=== PATIENT | male | born 1995 | race Caucasian/White ===

== ENCOUNTER 2019-08-15 17:59 | Emergency (ER) | payer BC ==
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
[2019-08-15] MEDS ORDERED: Acetaminophen 500 MG TAB ONE (19:21)
[2019-08-15] MEDS ORDERED: Ibuprofen 800 MG TAB ONE (19:21)
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
== END 2019-08-15 19:41 | disposition home or self-care (01) ==
LOC: ERS 17:59
DX: S60.212A Contusion of left wrist, initial encounter (principal); S80.12XA Contusion of left lower leg, initial encounter; V43.92XA Unspecified car occupant injured in collision with other type car in traffic accident, initial encounter